=== PATIENT | female | born 1970 | race Caucasian/White ===

== ENCOUNTER 2020-12-03 08:50 | Emergency (ER) | payer OTHER ==
[~2020-12-03] VITALS: Ht 162.6 cm; Wt 80.3 kg
[2020-12-03 09:20] LABS: BASO # 0.1 x10^3/uL (0.0-0.2); BASO % 1 % (0-3); EOS # 0.2 x10^3/uL (0.0-0.7); EOS % 2 % (0-3); HEMATOCRIT 43.2 % (36.0-47.0); HEMOGLOBIN 14.9 g/dL (12.0-15.5); LYMPH % 18 % (24-48); MEAN CORPUSCULAR HEMOGLOBIN 31 pg (25-35); MEAN CORPUSCULAR HGB CONC 35 g/dL (31-37); MEAN CORPUSCULAR VOLUME 90 fL (79-100); MONO # 0.6 x10^3/uL (0.0-1.1); MONO % 5 % (0-9); NEUT # 8.2 x10^3/uL (1.8-7.7); NEUT % 74 % (31-73); PLATELET COUNT 372 x10^3/uL (140-400); RED BLOOD COUNT 4.81 x10^6/uL (3.50-5.40); RED CELL DISTRIBUTION WIDTH 12.6 % (11.5-14.5)
[2020-12-03 09:29] LABS: PROTHROMBIN TIME PATIENT 13.1 SEC (11.7-14.0)
[2020-12-03] MEDS ORDERED: IOHEXOL 300 MG/ML 100ML VIAL. IV ONE (09:30)
[2020-12-03] MEDS ORDERED: CONTRAST GIVEN. MC PRN (09:30)
[2020-12-03 09:32] LABS: CALCIUM 8.9 mg/dL (8.5-10.1); GFR 58.7
[2020-12-03 09:38] LABS: ALBUMIN 3.3 g/dL (3.4-5.0); ALBUMIN/GLOBULIN RATIO 0.8 (1.0-1.7); TOTAL BILIRUBIN 0.2 mg/dL (0.2-1.0); TOTAL PROTEIN 7.5 g/dL (6.4-8.2)
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
[2020-12-03] MEDS ORDERED: DIPH,PERTUSS(ACELL),TET VAC/PF 0.5 ML SYRINGE. VAX IM ONE (10:00)
[2020-12-03 10:31] LABS: BILIRUBIN,URINE NEGATIVE (NEG); CLARITY,URINE CLEAR; COLOR,URINE YELLOW; NITRITE,URINE NEGATIVE (NEG); PH,URINE 5.5 (<5.0-8.0); PROTEIN,URINE NEGATIVE (NEG-TRACE); UROBILINOGEN,URINE 0.2 mg/dL (0.2 mg/dL)
[2020-12-03 10:44] LABS: BARBITURATES NEG (NEG); BENZODIAZEPINES NEG (NEG); CANNABINOIDS NEG (NEG); COCAINE NEG (NEG); METHADONE NEG (NEG); OPIATES NEG (NEG); PHENCYCLIDINE NEG (NEG)
[2020-12-03 10:56] LABS: AMPHETAMINE/METHAMPHETAMINE NEG (NEG)
[2020-12-03] MEDS ORDERED: ONDANSETRON PF 4 MG/2 ML VIAL. IVP ONE ×2 (11:00→13:30)
[2020-12-03 11:08] LABS: BACTERIA,URINE FEW /HPF (0-FEW); RBC,URINE 0 /HPF (0-2); WBC,URINE >40 /HPF (0-4)
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
[2020-12-03] MEDS ORDERED: IV NORMAL SALINE 1000ML BAG 1,000 ML IV ONE (12:00)
[2020-12-03] MEDS ORDERED: fentaNYL PF VIAL 100 MCG/2 ML VIAL IVP ONE (12:15)
[2020-12-03] MEDS ORDERED: HYDR-2761 PO (12:21)
[2020-12-03 13:00] VITALS: BP 111/65
[2020-12-03] MEDS ORDERED: ONDANSETRON ODT 4 MG TAB.RAPDIS. PO ONE (13:00)
== END 2020-12-03 13:17 | disposition home or self-care (01) ==
LOC: ER 08:50
DX: S30.811A Abrasion of abdominal wall, initial encounter (principal); S60.811A Abrasion of right wrist, initial encounter; R42 Dizziness and giddiness; R06.02 Shortness of breath; R07.89 Other chest pain; M25.511 Pain in right shoulder; R10.2 Pelvic and perineal pain; M54.6 Pain in thoracic spine; M54.5 Low back pain; R51.9 Headache, unspecified; V43.53XA Car driver injured in collision with pick-up truck in traffic accident, initial encounter; Y92.488 Other paved roadways as the place of occurrence of the external cause; Y93.89 Activity, other specified; Y99.8 Other external cause status
CPT/HCPCS: 36415; 70450; 71045; 71260; 72125; 72128; 72131; 72170; 73010; 73110; 74177; 80053; 80307; 81001; 85025; 85610; 85730; 86850; 86900; 86901; 90471; 90715; 96361; 96374; 96375; 99285; J2405; J3010; J7030; Q9967